=== PATIENT | female | born 1950 | race Caucasian/White ===

== ENCOUNTER 2018-05-17 12:00 | Inpatient (IN) | payer MEDICARE, OTHER ==
[~2018-05-17] VITALS: Ht 162.6 cm; Wt 88.5 kg
--- NOTE | 2018-07-24 13:45 | Pre-op HX & Phy Repo 2 SIG ---
DATE OF ADMISSION: 07/25/2018 SCHEDULED FOR ADMISSION: On July 25, 2018. HISTORY OF PRESENT ILLNESS: The patient is a 67-year-old female in overall stable health with a malfunctioning Kock pouch continent ileostomy. The patient had ulcerative colitis and in 1974 underwent surgery surgery involving proctocolectomy and Maira ileostomy. In 1977 she underwent creation of a Kock pouch continent ileostomy. She has done well with her Kock pouch over the years, but recently her stoma has prolapsed up to 4 cm above the skin. The stoma was also enlarged and she has occasional incontinence of stool and gas. The patient intubates 4-5 times a day and once at night, without difficulty. She is scheduled to undergo endoscopy of her pouch and preparation for surgery with laparotomy with revision of Kock pouch. PAST MEDICAL HISTORY: MEDICATIONS: Levothyroxine, lisinopril 20 mg daily for hypertension, Vyvanse 30 mg daily for attention deficit disorder, baclofen p.r.n. muscle cramps which she thinks is due to dehydration which she has at times, and she uses an inhaler p.r.n. ALLERGIES: Intravenous contrast causes anaphylaxis and Cipro intravenously caused an inflamed vein. OPERATIONS: In addition to the above, she has undergone left knee surgery x2, tonsillectomy, excision of breast fibroadenoma, and finger surgery. She is nulliparous. PHYSICAL EXAMINATION: She is 5 feet 4 inches, approximately 190 pounds. She is arriving from out of town and will be examined upon arrival and dictated separately. IMPRESSION: 1. Malfunctioning Kock pouch continent ileostomy with stoma prolapse and valve partial desussception with incontinence. 2. History of ulcerative colitis. 3. STATUS POST MULTIPLE ABDOMINAL OPERATIONS: 3.1. Proctocolectomy with Maira ileostomy in 1974. 3.2. Creation of Kock pouch continent ileostomy in 1977. PLAN: The patient will be admitted and undergo insertion of a dual-lumen PICC line, bowel prep, intravenous hydration during the bowel prep and overnight with pouch endoscopy and preparation for surgery. I have had a full discussion with the patient, which I will again have in person when she arrives from out of town regarding the nature of her problem, the nature of the surgery, indications, alternatives, options, and risks including bleeding, infection, injury to adjacent structures or organs, recurrent difficulties with the pouch structure or function needing additional procedures, potential need to remove her pouch and create a conventional Maira ileostomy. Bang Gracia M.D. DR: Jimbo JOB#: [id number] CC: KELLY
[2018-07-25 10:15] VITALS: BP 153/79
[2018-07-25] MEDS ORDERED: Lidocaine 1% Plain 30 ml INJ ONE (11:00)
[2018-07-25] MEDS ORDERED: Zolpidem 5mg tab ORAL PRN (11:00)
[2018-07-25] MEDS ORDERED: Heparin1,000 units/500ml Premix(Conc:2 units/ml) IV ONE (11:00)
[2018-07-25 11:09] LABS: BASOPHILS % (AUTO) 1.1 % (0.0-2.0); EOSINOPHILS % (AUTO) 2.7 % (0.0-3.0); HEMATOCRIT 38.4 % (37.0-47.0); HEMOGLOBIN 12.6 G/DL (12.0-16.0); LYMPHOCYTES % (AUTO) 38.1 % (20.0-45.0); MEAN CORPUSCULAR VOLUME 93 FL (80-99); MONOCYTES % (AUTO) 6.9 % (1.0-10.0); NEUTROPHILS % (AUTO) 51.2 % (45.0-75.0); PLATELET COUNT 332 K/UL (150-450); RED BLOOD COUNT 4.15 M/UL (4.20-5.40); RED CELL DISTRIBUTION WIDTH 11.8 % (11.6-14.8); WHITE BLOOD COUNT 7.9 K/UL (4.8-10.8)
[2018-07-25 11:20] LABS: INR 0.9 (0.9-1.1)
[2018-07-25 11:29] LABS: ANION GAP 9 mmol/L (5-15); BLOOD UREA NITROGEN 13 mg/dL (7-18); CALCIUM 9.3 MG/DL (8.5-10.1); CARBON DIOXIDE 25 MMOL/L (21-32); CHLORIDE 106 MMOL/L (98-107); CREATININE 1.2 MG/DL (0.55-1.30); POTASSIUM 4.1 MMOL/L (3.5-5.1); SODIUM 140 MMOL/L (136-145)
[2018-07-25 11:33] LABS: ALANINE AMINOTRANSFERASE 39 U/L (12-78); ALBUMIN 3.8 G/DL (3.4-5.0); ALBUMIN/GLOBULIN RATIO 1.1 (1.0-2.7); ALKALINE PHOSPHATASE 118 U/L (46-116); ASPARTATE AMINO TRANSFERASE 32 U/L (15-37); BILIRUBIN,TOTAL 0.7 MG/DL (0.2-1.0)
[2018-07-25] MEDS ORDERED: PROVENTIL HFA6.7 G1 IH (11:33)
[2018-07-25] MEDS ORDERED: LEVOTHYROXINE75 MCG ORAL (11:33)
[2018-07-25] MEDS ORDERED: LISINOPRIL20 MG ORAL (11:33)
[2018-07-25] MEDS ORDERED: [UNRECOGNIZED DRUG - OTHER] (11:33)
[2018-07-25] MEDS ORDERED: BACLOFEN10 MG ORAL (11:33)
[2018-07-25] MEDS ORDERED: Lidocaine 1% Plain 30 ml INJ PRN (11:58)
[2018-07-25] MEDS ORDERED: Heparin1,000 units/500ml Premix(Conc:2 units/ml) IV PRN (11:58)
[2018-07-25 12:00] VITALS: BP 140/80
[2018-07-25] MEDS: Neomycin Sulfate 500mg Tab ORAL SCH ×4 (12:12→21:05)
--- NOTE | 2018-07-25 12:22 | Pre-Procedure Note/Attestation ---
Pre-Procedure Note/Attestation Complete Prior to Procedure Planned Procedure: not applicable Procedure Narrative: Kock pouch endoscopy Indications for Procedure Pre-Operative Diagnosis: malfunctioning Kock Pouch Attestation I attest that I discussed the nature of the procedure; its benefits; risks and complications; and alternatives (and the risks and benefits of such alternatives ), prior to the procedure, with the patient (or the patient's legal claim service representative). I attest that, if there was a reasonable possibility of needing a blood transfusion, the patient (or the patient's legal claim service representative) was given the [facility] standardized written summary, pursuant to the Dominik Lazara Blood Safety Act ([place] Health and Safety Code # 1645, as amended). I attest that I re-evaluated the patient just prior to the surgery and that there has been no change in the patient's H&P, except as documented below: none Bang Gracia MD Jul 25, 2018 12:22
--- NOTE | 2018-07-25 12:38 | Anethesia Preoperative Eval ---
Anesthesia Pre-op PMH/ROS General Date of Evaluation: Jul 25, 2018 Anesthesiologist: Rashi ASA Score: ASA 2 Mallampati Score Class I : Soft palate, uvula, fauces, pillars visible Class II: Soft palate, uvula, fauces visible Class III: Soft palate, base of uvula visible Class IV: Only hard plate visible Mallampati Classification: Class II Surgeon: Basil Diagnosis: Malfunctioning rivera pouch Surgical Procedure: Laparotomy, revision of mukherjee pouch Anesthesia History: none Family History: no anesthesia problems Allergies: Coded Allergies: IODINATED CONTRAST- ORAL AND IV DYE (Verified Allergy, Severe, Anaphylaxis , 07/25/18) MEPERIDINE (Verified Allergy, Severe, Anaphylaxis, 07/25/18) CIPROFLOXACIN (Verified Allergy, Intermediate, Hives, 07/25/18) Medications: see eMAR Patient NPO?: Yes NPO Date: Jul 25, 2018 Past Medical History Cardiovascular: Reports: HTN; Denies: CAD, [place], valve dz, arrhythmia, other Pulmonary: Reports: asthma - mild, prn inhaler; Denies: COPD, VIJAY, other Gastrointestinal/Genitourinary: Reports: other - ulcerative colitis; Denies: GERD, CRI, ESRD Neurologic/Psychiatric: Denies: dementia, CVA, depression/anxiety, TIA, other Endocrine: Reports: hypothyroidism; Denies: DM, steroids, other HEENT: Denies: cataract (L), cataract (R), glaucoma, SLEETMUTE (L), SLEETMUTE (R), other Hematology/Immune: Denies: anemia, DVT, bleeding disorder, other Musculoskeletal/Integumentary: Denies: OA, RA, DJD, DDD, edema, other PSxH Narrative: mukherjee pouch, Left knee sx, T&A, finger sx Anesthesia Pre-op Phys. Exam Physician Exam Last Vital Signs Date Time Temp Pulse Resp B/P (MAP) Pulse Ox O2 Delivery O2 Flow Rate FiO2 07/25/18 10:15 97.9 70 18 153/79 (103) 100 Constitutional: NAD Cardiovascular: RRR Respiratory: CTA Airway Exam Mallampati Score: Class II MO: full ROM: full Anesthesia Pre-op A/P Labs Hematology Test 07/25/18 10:55 White Blood Count 7.9 K/UL (4.8-10.8) Red Blood Count 4.15 M/UL (4.20-5.40) L Hemoglobin 12.6 G/DL (12.0-16.0) Hematocrit 38.4 % (37.0-47.0) Mean Corpuscular Volume 93 FL (80-99) Mean Corpuscular Hemoglobin 30.4 PG (27.0-31.0) Mean Corpuscular Hemoglobin Concent 32.8 G/DL (32.0-36.0) Red Cell Distribution Width 11.8 % (11.6-14.8) Platelet Count 332 K/UL (150-450) Mean Platelet Volume 6.5 FL (6.5-10.1) Neutrophils (%) (Auto) 51.2 % (45.0-75.0) Lymphocytes (%) (Auto) 38.1 % (20.0-45.0) Monocytes (%) (Auto) 6.9 % (1.0-10.0) Eosinophils (%) (Auto) 2.7 % (0.0-3.0) Basophils (%) (Auto) 1.1 % (0.0-2.0) Coagulation Test 07/25/18 10:55 Prothrombin Time 9.9 SEC (9.30-11.50) Prothromb Time International Ratio 0.9 (0.9-1.1) Activated Partial Thromboplast Time 25 SEC (23-33) Chemistry Test 07/25/18 10:55 Sodium Level 140 MMOL/L (136-145) Potassium Level 4.1 MMOL/L (3.5-5.1) Chloride Level 106 MMOL/L (98-107) Carbon Dioxide Level 25 MMOL/L (21-32) Anion Gap 9 mmol/L (5-15) Blood Urea Nitrogen 13 mg/dL (7-18) Creatinine 1.2 MG/DL (0.55-1.30) Estimat Glomerular Filtration Rate 44.5 mL/min (>60) Glucose Level 105 MG/DL (74-106) Calcium Level 9.3 MG/DL (8.5-10.1) Total Bilirubin 0.7 MG/DL (0.2-1.0) Aspartate Amino Transf (AST/SGOT) 32 U/L (15-37) Alanine Aminotransferase (ALT/SGPT) 39 U/L (12-78) Alkaline Phosphatase 118 U/L (46-116) H Total Protein 7.2 G/DL (6.4-8.2) Albumin 3.8 G/DL (3.4-5.0) Globulin 3.4 g/dL Albumin/Globulin Ratio 1.1 (1.0-2.7) Studies Pre-op Studies: EKG - sr Risk Assessment & Plan Assessment: ASA II Plan: GA, patient states the morphine works best for her pain Status Change Before Surgery: No Pre-Antibiotics Drug: Shy Power MD Jul 25, 2018 12:38
[2018-07-25] MEDS ORDERED: D5 1/2NS w/KCl 20mEq 1,000 ML IV SCH ×2 (13:00→18:00)
[2018-07-25 13:17] LABS: APPEARANCE,URINE CLEAR; BILIRUBIN, URINE NEGATIVE (NEGATIVE); COLOR,URINE PALE YELLOW; GLUCOSE, URINE (UA) NEGATIVE (NEGATIVE); KETONES,URINE NEGATIVE (NEGATIVE); LEUKOCYTE ESTERASE ,URINE 1+ (NEGATIVE); NITRITE,URINE NEGATIVE (NEGATIVE); PH,URINE 5 (4.5-8.0); PROTEIN,URINE NEGATIVE (NEGATIVE); UROBILINOGEN,URINE NORMAL MG/DL (0.0-1.0)
--- NOTE | 2018-07-25 13:17 | Brief Operative Note ---
Immediate Post Operative Note Operative Note Pre-op Diagnosis: malfunctioning Kock Pouch Procedure: Kock pouch endoscopy Post-op Diagnosis: Prolapsed valve of Kock Pouch Post-op Diagnosis: same as pre-op Findings: consistent w/pre-op dx studies Surgeon: luis carlos Anesthesiologist: nestor Anesthesia: other - none Specimen: none Complications: none Condition: stable Fluids: none Estimated Blood Loss: none Drains: other - 28 Jerome to Kock Pouch Implant(s) used?: No Bang Gracia MD Jul 25, 2018 13:17
--- NOTE | 2018-07-25 13:56 | Diagnostic Imaging Report ---
Indication: Cough Technique: 2 views of the chest Comparison: None Findings: Lungs and pleural spaces are clear. The heart size is normal. The bones are unremarkable. There are degenerative changes of the thoracic spine Impression: Negative
--- NOTE | 2018-07-25 15:38 | General Progress Note ---
Progress Note Progress Note H&P dictated. Full discussion with patient re revision Kock pouch, possible new valve and stoma. Bang Gracia MD Jul 25, 2018 15:38
[2018-07-25 16:00] VITALS: BP 140/80
--- NOTE | 2018-07-25 16:32 | Diagnostic Imaging Report ---
Indications: Needs long-term IV access Technique: Ultrasound confirms patent compressible left basilic vein. Total sterile technique, including sterile probe cover and sterile gel, hat, mask, sterile gown, large sterile drape, and preparation with 2% chlorhexidine utilized. Local anesthesia with 1% lidocaine. Under real-time ultrasound guidance, puncture is a vein using 21-gauge needle, documented and archived, passage 0.018 guidewire under direct fluoroscopy, which was used to determine appropriate catheter length, exchange for 5 Spanish peel-away sheath. 5 Spanish Bard dual-lumen power PICC cut to 45 cm. It was inserted through the peel-away sheath. Peel-away sheath and guidewire removed. Catheter fixed to the skin. Both catheter ports aspirated and flushed. Patient tolerated procedure well, without immediate complication. Digital radiograph documents satisfactory catheter tip position, at the cavoatrial junction. Total fluoroscopy time 10.5 seconds. Total dose area product 1.25 mGy Total number of images: 1 Impression: Successful placement of left arm PICC under sonographic and fluoroscopic guidance, as described above.
[2018-07-25] MEDS: D5 1/2NS w/KCl 20mEq 1,000 ML IV SCH (18:01)
[2018-07-25 20:00] VITALS: BP 145/81
[2018-07-25] MEDS ORDERED: Dyna-Hex 2% Top Sol 2oz TOPIC SCH (20:00)
[2018-07-25] MEDS: Dyna-Hex 2% Top Sol 2oz TOPIC SCH (21:05)
[2018-07-25] MEDS ORDERED: Lisinopril 20mg tab ORAL SCH (21:30)
--- NOTE | 2018-07-25 22:00 | Pre-op HX & Phy Repo 2 SIG ---
DATE OF ADMISSION: 07/25/2018 HISTORY OF PRESENT ILLNESS: The patient has now arrived from out of town. Please see previously dictated history. PHYSICAL EXAMINATION: GENERAL: She is well developed and well nourished, somewhat obese, 5 feet 4 inches, 190 pounds with stable vital signs. HEENT: Within normal limits. LUNGS: Clear. HEART: Regular rhythm . BREASTS: Without masses. ABDOMEN: Somewhat obese and soft. There is a long curved midline scar. There is a right lower quadrant scar from prior conventional ileostomy. The stoma of her Kock pouch continent ileostomy is low in the right lower quadrant and well formed. With straining there was prolapse which ultimately extends 5 cm above the skin. There is no evidence of abdominal wall hernia. PELVIC: Negative per primary care physician. RECTAL: Status post proctectomy. EXTREMITIES: Without edema. pulses 2+ femoral to pedal bilaterally. NEUROLOGIC: Physiologic. IMPRESSION: 1. Malfunctioning Kock pouch continent ileostomy with prolapse of the valve with incontinence. 2. History of ulcerative colitis. 3. Hypertension. 4. Attention deficit disorder. 5. Hypothyroidism. 6. Status post multiple abdominal operations 6.1. Proctocolectomy with Maira ileostomy in 1974. 6.2. Creation of Kock pouch continent ileostomy in 1977. PLAN: The patient will undergo laparotomy and revision of her Kock pouch ideally to be able to reform and stabilize her existing valve. Alternatively, a new valve and stoma will be created preserving the existing pouch which is otherwise healthy. I had a full discussion with the patient regarding the nature of the surgery, options, and risks including both the general and specific risks of the Kock pouch revision and possible gastrostomy. All questions have been answered. She understands and agrees to proceed. Bang Gracia M.D. DR: Richi JOB#: [id number] CC: KELLY
--- NOTE | 2018-07-25 22:15 | Procedure Note ---
DATE OF PROCEDURE: 07/25/2018 ENDOSCOPY PROCEDURE REPORT ENDOSCOPIST: Bang Gracia M.D. ANESTHESIA: None. SEDATION: None. PRE-ENDOSCOPY DIAGNOSIS: Malfunctioning Kock pouch continent ileostomy. POST-ENDOSCOPY DIAGNOSIS: Malfunctioning Kock pouch continent ileostomy. ENDOSCOPY PERFORMED: Kock pouch endoscopy. FINDINGS: Prolapse of the nipple valve with a healthy pouch. DESCRIPTION OF PROCEDURE: The patient was positioned supine in the GI lab without any sedation or anesthesia given or required. Using a GIF-P140 endoscope, the stoma was entered and the distance to the tip of the nipple valve was 11 to 12 cm. The pouch was distensible and mucosa normal. Retroflex views revealed that one portion of the valve was very tilted and foreshortened. Withdrawal views confirmed the above findings. After the endoscope was removed, I was able to readily insert a 28-Czech Jerome catheter into the pouch to decompress it. It was taped in place to the skin with a dressing over the stoma and the catheter connected to a Jerome drainage bag for continuous gravity drainage. The patient will require surgical revision of her Kock pouch. She tolerated the endoscopy well. Bang Gracia M.D. DR: Richi JOB#: [id number] CC:
[2018-07-26] VITALS (19 sets, daily range): BP systolic 76–136; BP diastolic 45–66
[2018-07-26] MEDS: D5 1/2NS w/KCl 20mEq 1,000 ML IV SCH (03:54)
[2018-07-26] MEDS ORDERED: Heparin 5000 units/ml inj SUBQ SCH (05:30)
[2018-07-26] MEDS: Ampicillin/Sulbactam Sod 3 GM in NS 110 ML IVPB SCH ×3 (05:46)
[2018-07-26] MEDS ORDERED: NS Irrig 1000ml ONE (07:00)
[2018-07-26] MEDS ORDERED: LR 1000ml ONE (07:00)
[2018-07-26] MEDS ORDERED: Sterile Water Irrig 1000ml IRRIG ONE (07:00)
[2018-07-26] MEDS ORDERED: Bacitracin 50000 Units Vial ONE ×2 (07:02→07:33)
[2018-07-26] MEDS ORDERED: NeoSporin Gu Irrig 1ml Amp IRRIG ONE ×2 (07:02→07:33)
[2018-07-26] MEDS ORDERED: fentaNYL 100 mcg/2 mL IV ONE (07:03)
[2018-07-26] MEDS ORDERED: Midazolam 2mg/2ml Inj ONE (07:04)
[2018-07-26] MEDS ORDERED: Propofol 200mg/20ml IV ONE (07:06)
[2018-07-26] MEDS ORDERED: Lidocaine 1% MPF 10mg/ml 5ml ONE (07:06)
[2018-07-26] MEDS ORDERED: Succinylcholine 20mg/ml 10ml vial ONE (07:16)
[2018-07-26] MEDS ORDERED: Zemuron 50mg/5ml Inj IV ONE (07:16)
--- NOTE | 2018-07-26 07:19 | Pre-Procedure Note/Attestation ---
Pre-Procedure Note/Attestation Complete Prior to Procedure Planned Procedure: not applicable Procedure Narrative: revision Kock pouch, possible gastrostomy Indications for Procedure Pre-Operative Diagnosis: malfunctioning Kock Pouch Attestation I attest that I discussed the nature of the procedure; its benefits; risks and complications; and alternatives (and the risks and benefits of such alternatives ), prior to the procedure, with the patient (or the patient's legal agricultural sales representative). I attest that, if there was a reasonable possibility of needing a blood transfusion, the patient (or the patient's legal agricultural sales representative) was given the [facility] standardized written summary, pursuant to the Dominik [place] Blood Safety Act ([place] Health and Safety Code # 1645, as amended). I attest that I re-evaluated the patient just prior to the surgery and that there has been no change in the patient's H&P, except as documented below:none Bang Gracia MD Jul 26, 2018 07:19
[2018-07-26] MEDS ORDERED: LR 1000ml 1,000 ML IVLG SCH (08:28)
[2018-07-26] MEDS ORDERED: Acetaminophen (Non formulary) 100 ML IV ONE (08:30)
[2018-07-26] MEDS ORDERED: DiphenhydrAMINE 50mg/ml Inj IVP PRN ×2 (08:30→10:15)
[2018-07-26] MEDS ORDERED: Hydromorphone 0.5mg/0.5ml inj IVP PRN (08:30)
[2018-07-26] MEDS ORDERED: Morphine Sulfate 10mg/ml Inj ONE (08:40)
[2018-07-26] MEDS ORDERED: ePHEDrine 50mg/ml Inj ONE (08:53)
[2018-07-26] MEDS ORDERED: Sodium Chloride 10ml vial INJ ONE (08:53)
[2018-07-26] MEDS: VYVANSE 30 MG ORAL SCH (09:00)
[2018-07-26] MEDS ORDERED: Lisinopril 20mg tab ORAL SCH (09:00)
[2018-07-26] MEDS ORDERED: Ketorolac 30mg Inj ONE (09:34)
--- NOTE | 2018-07-26 09:58 | Brief Operative Note ---
Immediate Post Operative Note Operative Note Pre-op Diagnosis: malfunctioning Kock Pouch Procedure: Laparotomy with revision of Kock Pouch Post-op Diagnosis: Prolapsed valve of Kock Pouch Post-op Diagnosis: same as pre-op Findings: consistent w/pre-op dx studies Surgeon: luis carlos Certified Income Tax Preparer: kory Anesthesiologist: lauren Anesthesia: general Specimen: none Complications: none Condition: stable Fluids: see anesthesia record Estimated Blood Loss: minimal Drains: other - 28 Jerome to Kock pouch Implant(s) used?: Bang Massey MD Jul 26, 2018 09:58
[2018-07-26] MEDS ORDERED: LORazepam 1mg tab SL PRN (10:00)
--- NOTE | 2018-07-26 10:09 | Immediate Post-Op Evaluation ---
Immediate Post-Op Evalulation Immediate Post-Op Evalulation Procedure: Exploratorylaparotomy revision of continent pouch Date of Evaluation: Jul 26, 2018 Time of Evaluation: 10:07 IV Fluids: 800 Blood Products: none Estimated Blood Loss: <50 Urinary Output: 350 Blood Pressure Systolic: 92 Blood Pressure Diastolic: 56 Pulse Rate: 74 Respiratory Rate: 22 O2 Sat by Pulse Oximetry: 98 Temperature (Fahrenheit): 98.2 Pain Score (1-10): 1 Nausea: No Vomiting: No Complications none Patient Status: reacts, patent, extubated, none Hydration Status: adequate Doni Varela MD Jul 26, 2018 10:09
[2018-07-26] MEDS ORDERED: Naloxone 0.4mg/ml Inj IVP PRN (10:15)
[2018-07-26] MEDS ORDERED: Morphine Sulfate 4mg/ml Inj (IV USE ONLY) IV PRN (10:15)
[2018-07-26] MEDS ORDERED: Rate Change PCA 1 Each MISC PRN (10:15)
[2018-07-26] MEDS ORDERED: PCA Morphine 1mg/ml 30 ML IV PRN ×2 (10:15→13:42)
[2018-07-26] MEDS ORDERED: Morphine Sulfate 2mg/ml Inj(IV/IM USE ONLY) IVP PRN (10:15)
[2018-07-26] MEDS ORDERED: PCA Education Pamphlet MISC ONE (11:00)
[2018-07-26] MEDS ORDERED: NS 250 ML IVPB ONE (12:00)
[2018-07-26] MEDS: Ampicillin/Sulbactam Sod 3 GM in NS 110 ML IV SCH ×2 (12:06→17:38)
[2018-07-26] MEDS: D5 1/4NS w/KCl 20mEq 1,000 ML IV SCH ×2 (14:08→21:55)
--- NOTE | 2018-07-26 15:06 | General Progress Note ---
Progress Note Progress Note Was very sleepy with low systolic BP without tachycardia. Given IV fluid bolus, now awake and alert with stable VS Abdomen soft, dressing dry Kock pouch - small amount serosang fluid Imp. Stable Bang Gracia MD Jul 26, 2018 15:06
--- NOTE | 2018-07-26 16:30 | Operative Note - Dictated ---
DATE OF OPERATION: 07/26/2018 SURGEON: Bang Gracia M.D. CONSTRUCTION SAFETY CONSULTANT: Umang Wright M.D. ANESTHESIOLOGIST: Doni Varela M.D. TYPE OF ANESTHESIA: General endotracheal. PREOPERATIVE DIAGNOSES: 1. 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 2. History of ulcerative colitis. 3. Status post multiple abdominal operations. 3.1. Proctocolectomy with Maira ileostomy in 1974. 3.2. Creation of Kock pouch continent ileostomy in 1977. POSTOPERATIVE DIAGNOSES: 1. 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 2. History of ulcerative colitis. 3. Status post multiple abdominal operations. 3.1. Proctocolectomy with Maira ileostomy in 1974. 3.2. Creation of Kock pouch continent ileostomy in 1977. OPERATION PERFORMED: Laparotomy with revision of Kock pouch. PROCEDURE: The patient was taken to the operating room and under general anesthesia with sequential compression device stockings and Jerome catheter in place and having received preoperative intravenous antibiotics and subcutaneous heparin, the patient was prepped and draped in usual fashion. The stoma low in the right lower quadrant was initially covered with a Tegaderm. Previous midline incision was reopened from just below the umbilicus to the pubis. There were no adhesions in the abdominal cavity. The pouch was readily elevated out of the pelvis. The uterus, tubes, and ovaries were atrophic and consistent with age. The upper abdomen was negative to palpation, but could not be visualized through this incision in view of her large body habitus. A 28-Welsh Jerome catheter was placed into the pouch through the stoma in the right lower quadrant and the afferent bowel manually occluded. The pouch was distended with 500 mL of saline. The catheter was removed and there was no incontinence. The catheter was reintroduced and the pouch decompressed. A pouch enterotomy was created avoiding the afferent bowel connection to the pouch. The nipple valve was grasped and was able to be reformed to 5.0 cm. A row of jt using the PI-55 stapling device with 4.8 mm jt was placed 90 degrees away from the mesentery. Then through a separate pouch enterotomy, the stapling device was introduced with the lower blade through the enterotomy and into the valve to staple the valve to the anterior pouch wall. In addition, I used three sutures of 2-0 Prolene horizontal mattress full-thickness of the pouch, then the valve near the tip and back to the pouch to help prevent recurrent prolapse. The ileostomy catheter went readily in and out of the stoma into the pouch. The small enterotomy was closed with continuous 2-0 chromic full-thickness locking suture followed by imbricating 3-0 silk. The main pouch enterotomy was closed with continuous 2-0 chromic locking suture full-thickness followed by imbricating 3-0 silk. Again, the 28-Welsh Jerome could readily be placed through the stoma into the pouch. Now the afferent bowel was manually occluded and the pouch again distended with 450 mL of saline. There was no extravasation of any kind and when the catheter was removed, there was no incontinence. The catheter was reintroduced and the pouch decompressed. The pouch was placed down into the pelvis with the bowel loops following anatomically. I did not feel catheter gastrostomy was indicated. The incision was closed in one layer with continuous looped 0 PDS and antibiotic irrigation used for the subcutaneous tissues. The abdominal wall had been protected with antibiotic soaked laps during the procedure. The skin was closed with jt. Dry sterile dressings were applied. Final sponge and needle counts were correct. The 28-Welsh Jerome had been appropriately positioned in the pouch, marked at the level of the stoma with 3-0 silk and sutured to the skin with two sutures of 2-0 silk. It was flushed and connected to a gravity drainage bag. The patient tolerated the procedure well and left the operating room in good condition. Bang Gracia M.D. DR: Richi JOB#: [id number] CC: KELLY
[2018-07-26] MEDS: PCA shift volume MISC SCH (19:30)
[2018-07-26] MEDS: Dyna-Hex 2% Top Sol 2oz TOPIC SCH (20:08)
[2018-07-26] MEDS: Guaifenesin/DM 10ml syrup ORAL PRN (20:33)
[2018-07-27] VITALS: BP 117/64
[2018-07-27] MEDS: Ampicillin/Sulbactam Sod 3 GM in NS 110 ML IV SCH ×4 (00:01→17:54)
[2018-07-27] MEDS: Guaifenesin/DM 10ml syrup ORAL PRN ×2 (02:49→11:43)
[2018-07-27 04:00] VITALS: BP 121/61
[2018-07-27] MEDS: D5 1/4NS w/KCl 20mEq 1,000 ML IV SCH ×3 (05:33→21:32)
[2018-07-27 06:24] LABS: BASOPHILS % (AUTO) 0.3 % (0.0-2.0); EOSINOPHILS % (AUTO) 0.7 % (0.0-3.0); HEMATOCRIT 33.2 % (37.0-47.0); HEMOGLOBIN 11.1 G/DL (12.0-16.0); MEAN CORPUSCULAR VOLUME 93 FL (80-99); MONOCYTES % (AUTO) 8.2 % (1.0-10.0); NEUTROPHILS % (AUTO) 68.8 % (45.0-75.0); PLATELET COUNT 199 K/UL (150-450); RED BLOOD COUNT 3.58 M/UL (4.20-5.40); RED CELL DISTRIBUTION WIDTH 11.9 % (11.6-14.8); WHITE BLOOD COUNT 9.4 K/UL (4.8-10.8)
[2018-07-27 06:42] LABS: ANION GAP 8 mmol/L (5-15); BLOOD UREA NITROGEN 9 mg/dL (7-18); CALCIUM 8.1 MG/DL (8.5-10.1); CARBON DIOXIDE 24 MMOL/L (21-32); CHLORIDE 104 MMOL/L (98-107); CREATININE 1.3 MG/DL (0.55-1.30); POTASSIUM 4.6 MMOL/L (3.5-5.1); SODIUM 136 MMOL/L (136-145)
[2018-07-27] MEDS: PCA shift volume MISC SCH ×2 (07:00→19:00)
[2018-07-27 08:00] VITALS: BP 126/68
--- NOTE | 2018-07-27 08:09 | 48 Hour Post Anesthesia Eval ---
Post Anesthesia Evaluation Procedure: Exploratory laparotomy revision of continent pouch Date of Evaluation: Jul 27, 2018 Time of Evaluation: 08:07 Blood Pressure Systolic: 124 0: 76 Pulse Rate: 68 Respiratory Rate: 20 Temperature (Fahrenheit): 97.6 O2 Sat by Pulse Oximetry: 98 Airway: patent Nausea: No Vomiting: No Pain Intensity: 3 Hydration Status: adequate Cardiopulmonary Status: stable Mental Status/LOC: patient returned to baseline Follow-up Care/Observations: n/a Post-Anesthesia Complications: none Follow-up care needed: N/A Doni Varela MD Jul 27, 2018 08:09
--- NOTE | 2018-07-27 08:26 | General Progress Note ---
Progress Note Progress Note AVSS Had low systolic post-op now improved. comfortable with Morphine FOREST FIRE LOOKOUT no basal infusion. Had cough last night Chest clear decreased expansion cor reg rhythm Abdomen soft, mild distention, incision clean. Thick output via Kock pouch ileo catheter cleared with additional flush/aspiration Urine: 500cc/12 hours Kock pouch ileo 20 serosang and now enteric WBC 9400 Hgb 11.1 BUN 9 Cr 1.3 Imp. Ileus Atelectasis Plan; NPO x meds and ice chips ambulate with assistance BID f/u labs with iron panel, B12 and folate levels Bang Gracia MD Jul 27, 2018 08:26
[2018-07-27] MEDS: VYVANSE 30 MG ORAL SCH (08:40)
[2018-07-27] MEDS ORDERED: Morphine Sulfate 2mg/ml Inj(IV/IM USE ONLY) IVP PRN (10:00)
[2018-07-27] MEDS ORDERED: Naloxone 0.4mg/ml Inj IVP PRN (10:00)
[2018-07-27] MEDS ORDERED: Rate Change PCA 1 Each MISC PRN (10:00)
[2018-07-27] MEDS ORDERED: Morphine Sulfate 4mg/ml Inj (IV USE ONLY) IV PRN (10:00)
[2018-07-27] MEDS ORDERED: DiphenhydrAMINE 50mg/ml Inj IVP PRN (10:00)
[2018-07-27] MEDS: PCA Morphine 1mg/ml 30 ML IV PRN (11:11)
[2018-07-27 12:00] VITALS: BP 135/73
[2018-07-27 16:00] VITALS: BP 140/72
[2018-07-27] MEDS ORDERED: NS 275ml ONE (16:58)
[2018-07-27] MEDS ORDERED: Tubing IV Secondary IV ONE (16:58)
[2018-07-27] MEDS ORDERED: NS Irrig 1000ml ONE (16:58)
[2018-07-27 20:00] VITALS: BP 132/78
[2018-07-27] MEDS: Dyna-Hex 2% Top Sol 2oz TOPIC SCH (20:00)
[2018-07-27] MEDS: LORazepam 1mg tab SL PRN (22:40)
[2018-07-28] VITALS: BP 141/83
[2018-07-28] MEDS: Ampicillin/Sulbactam Sod 3 GM in NS 110 ML IV SCH ×5 (00:22→23:20)
[2018-07-28 04:00] VITALS: BP 134/82
[2018-07-28] MEDS: D5 1/4NS w/KCl 20mEq 1,000 ML IV SCH (05:50)
[2018-07-28 06:51] LABS: BASOPHILS % (AUTO) 0.7 % (0.0-2.0); EOSINOPHILS % (AUTO) 1.4 % (0.0-3.0); LYMPHOCYTES % (AUTO) 27.1 % (20.0-45.0); MEAN CORPUSCULAR VOLUME 91 FL (80-99); MONOCYTES % (AUTO) 8.5 % (1.0-10.0); NEUTROPHILS % (AUTO) 62.4 % (45.0-75.0); PLATELET COUNT 204 K/UL (150-450); RED BLOOD COUNT 3.51 M/UL (4.20-5.40); RED CELL DISTRIBUTION WIDTH 11.4 % (11.6-14.8); WHITE BLOOD COUNT 9.6 K/UL (4.8-10.8)
[2018-07-28 07:14] LABS: ANION GAP 6 mmol/L (5-15); BLOOD UREA NITROGEN 6 mg/dL (7-18); CALCIUM 8.6 MG/DL (8.5-10.1); CARBON DIOXIDE 25 MMOL/L (21-32); CHLORIDE 103 MMOL/L (98-107); CREATININE 1.2 MG/DL (0.55-1.30); POTASSIUM 4.3 MMOL/L (3.5-5.1); SODIUM 134 MMOL/L (136-145)
[2018-07-28] MEDS: PCA shift volume MISC SCH ×2 (07:24→19:17)
[2018-07-28 08:00] VITALS: BP 139/67
[2018-07-28 08:25] LABS: IRON 19 ug/dL (50-175)
[2018-07-28] MEDS: VYVANSE 30 MG ORAL SCH (08:35)
[2018-07-28 12:00] VITALS: BP 140/78
--- NOTE | 2018-07-28 13:03 | General Progress Note ---
Progress Note Progress Note Surgery: covering for Dr. Basil ECHEVERRIASS comfortable with Morphine FLOOR RUNNER no basal infusion. pain controlled. no n/v/ f/c. Abdomen soft, mild distention, incision clean. good output Urine: 1200cc/12 hours Kock pouch ileo 140 serosang and enteric Na low. Imp. Ileus Atelectasis Plan; NPO x meds and ice chips ambulate with assistance BID AM labs change to D51/2NS Umang Guadarrama Jul 28, 2018 13:03
[2018-07-28] MEDS: D5 1/2NS w/KCl 20mEq 1,000 ML IV SCH ×2 (14:14→23:19)
[2018-07-28 16:00] VITALS: BP 156/76
[2018-07-28] MEDS: Abreva 10% cream 2gm TP SCH ×2 (17:30→18:41)
[2018-07-28 20:00] VITALS: BP 150/81
[2018-07-28] MEDS: Dyna-Hex 2% Top Sol 2oz TOPIC SCH (20:00)
[2018-07-28] MEDS: LORazepam 1mg tab SL PRN (23:18)
[2018-07-29] VITALS (7 sets, daily range): BP systolic 139–159; BP diastolic 73–83
[2018-07-29] MEDS: Ampicillin/Sulbactam Sod 3 GM in NS 110 ML IV SCH ×4 (05:13→23:02)
[2018-07-29] MEDS: D5 1/2NS w/KCl 20mEq 1,000 ML IV SCH ×5 (05:17→23:01)
[2018-07-29] MEDS: PCA Morphine 1mg/ml 30 ML IV PRN (05:46)
[2018-07-29] MEDS: Abreva 10% cream 2gm TP SCH ×5 (06:03→19:00)
[2018-07-29 06:56] LABS: ALANINE AMINOTRANSFERASE 26 U/L (12-78); ALBUMIN 2.4 G/DL (3.4-5.0); ALBUMIN/GLOBULIN RATIO 0.8 (1.0-2.7); ALKALINE PHOSPHATASE 82 U/L (46-116); ANION GAP 4 mmol/L (5-15); ASPARTATE AMINO TRANSFERASE 27 U/L (15-37); BILIRUBIN,TOTAL 0.4 MG/DL (0.2-1.0); BLOOD UREA NITROGEN 6 mg/dL (7-18); CALCIUM 8.4 MG/DL (8.5-10.1); CARBON DIOXIDE 28 MMOL/L (21-32); CHLORIDE 104 MMOL/L (98-107); CREATININE 1.2 MG/DL (0.55-1.30); SODIUM 135 MMOL/L (136-145)
[2018-07-29] MEDS: PCA shift volume MISC SCH ×2 (06:58→19:21)
[2018-07-29 06:59] LABS: BASOPHILS % (AUTO) 0.7 % (0.0-2.0); EOSINOPHILS % (AUTO) 2.1 % (0.0-3.0); HEMATOCRIT 30.6 % (37.0-47.0); HEMOGLOBIN 10.6 G/DL (12.0-16.0); LYMPHOCYTES % (AUTO) 24.8 % (20.0-45.0); MEAN CORPUSCULAR VOLUME 89 FL (80-99); MONOCYTES % (AUTO) 7.4 % (1.0-10.0); PLATELET COUNT 193 K/UL (150-450); RED BLOOD COUNT 3.43 M/UL (4.20-5.40); RED CELL DISTRIBUTION WIDTH 11.2 % (11.6-14.8); WHITE BLOOD COUNT 8.3 K/UL (4.8-10.8)
[2018-07-29] MEDS: VYVANSE 30 MG ORAL SCH ×2 (09:00→11:39)
[2018-07-29] MEDS ORDERED: Naloxone 0.4mg/ml Inj IVP PRN (09:20)
[2018-07-29] MEDS ORDERED: Rate Change PCA 1 Each MISC PRN (09:30)
[2018-07-29] MEDS ORDERED: PCA Morphine 1mg/ml 30 ML IV PRN (10:00)
[2018-07-29] MEDS ORDERED: DiphenhydrAMINE 50mg/ml Inj IVP PRN (10:00)
[2018-07-29] MEDS ORDERED: Morphine Sulfate 4mg/ml Inj (IV USE ONLY) IV PRN (10:00)
[2018-07-29] MEDS ORDERED: Morphine Sulfate 2mg/ml Inj(IV/IM USE ONLY) IVP PRN (10:00)
[2018-07-29] MEDS ORDERED: Lisinopril 20mg tab ORAL SCH (11:30)
--- NOTE | 2018-07-29 13:30 | General Progress Note ---
Progress Note Progress Note Surgery: covering for Dr. Basil AKINS comfortable with Morphine TNT LINE SUPERVISOR no basal infusion. pain controlled. no n/v/ f/c. Abdomen soft, no distention, incision clean. good output Urine: 2300cc/24 hours Kock pouch ileo 160 enteric Na low. Imp. Ileus Atelectasis Plan; NPO x meds and ice chips ambulate with assistance BID AM labs change to D51/2NS c K Hold lisinopril (baseline renal function) Umang Wright Jul 29, 2018 13:30
[2018-07-29] MEDS ORDERED: NS 275ml ONE (17:15)
[2018-07-29] MEDS: Dyna-Hex 2% Top Sol 2oz TOPIC SCH (20:08)
[2018-07-29] MEDS: LORazepam 1mg tab SL PRN (20:22)
[2018-07-30] VITALS (7 sets, daily range): BP systolic 131–151; BP diastolic 66–86
[2018-07-30] MEDS: LORazepam 1mg tab SL PRN ×2 (00:27→06:17)
[2018-07-30] MEDS: D5 1/2NS w/KCl 20mEq 1,000 ML IV SCH ×3 (06:07→20:53)
[2018-07-30] MEDS: Ampicillin/Sulbactam Sod 3 GM in NS 110 ML IV SCH ×3 (06:11→17:43)
[2018-07-30 06:19] LABS: BASOPHILS % (AUTO) 0.9 % (0.0-2.0); EOSINOPHILS % (AUTO) 2.4 % (0.0-3.0); HEMATOCRIT 31.1 % (37.0-47.0); HEMOGLOBIN 10.3 G/DL (12.0-16.0); LYMPHOCYTES % (AUTO) 20.7 % (20.0-45.0); MEAN CORPUSCULAR VOLUME 91 FL (80-99); MONOCYTES % (AUTO) 7.8 % (1.0-10.0); NEUTROPHILS % (AUTO) 68.2 % (45.0-75.0); PLATELET COUNT 193 K/UL (150-450); WHITE BLOOD COUNT 6.1 K/UL (4.8-10.8)
[2018-07-30 06:57] LABS: ALANINE AMINOTRANSFERASE 28 U/L (12-78); ALBUMIN 2.5 G/DL (3.4-5.0); ALBUMIN/GLOBULIN RATIO 0.7 (1.0-2.7); ALKALINE PHOSPHATASE 100 U/L (46-116); ANION GAP 6 mmol/L (5-15); ASPARTATE AMINO TRANSFERASE 29 U/L (15-37); BILIRUBIN,TOTAL 0.5 MG/DL (0.2-1.0); BLOOD UREA NITROGEN 7 mg/dL (7-18); CALCIUM 8.4 MG/DL (8.5-10.1); CARBON DIOXIDE 26 MMOL/L (21-32); CHLORIDE 101 MMOL/L (98-107); CREATININE 1.2 MG/DL (0.55-1.30); SODIUM 133 MMOL/L (136-145)
[2018-07-30] MEDS: PCA shift volume MISC SCH ×2 (07:00→20:06)
[2018-07-30] MEDS: Abreva 10% cream 2gm TP SCH ×4 (07:00→16:00)
[2018-07-30] MEDS: VYVANSE 30 MG ORAL SCH ×2 (09:51→09:53)
--- NOTE | 2018-07-30 14:48 | General Progress Note ---
Progress Note Progress Note Surgery: covering for Dr. Basil AKINS had pain yesterday. today states better but has not ambulated or used IS yet. low grade fevers. no n/v/f/c. Abdomen soft, mild distention, incision clean. good output Urine: okay Kock pouch ileo minimal enteric Na low. Imp. Ileus Atelectasis Plan; NPO x meds and ice chips ambulate with assistance BID AM labs KUB and CXR Encourage Incentive spirometry Umang Wright Jul 30, 2018 14:48
--- NOTE | 2018-07-30 16:04 | Diagnostic Imaging Report ---
Indication: Abdominal pain Comparison: None Single view of the abdomen obtained Findings: Surgical skin jt noted in the midabdomen lower abdomen. Bowel gas pattern is nonspecific. Bones are unremarkable. IMPRESSION: Recent abdominal surgery. Nonspecific bowel gas pattern
--- NOTE | 2018-07-30 16:05 | Diagnostic Imaging Report ---
Indication: Dyspnea Comparison: 07/25/2018 A single view chest radiograph was obtained. Findings: PICC line tip is in the SVC in good position. Heart size is normal. Mild basal atelectasis demonstrated. IMPRESSION: Mild basal atelectasis PICC line in good position
[2018-07-30] MEDS ORDERED: ABREVA TOPIC SCH (19:00)
[2018-07-30] MEDS: Dyna-Hex 2% Top Sol 2oz TOPIC SCH (20:51)
[2018-07-30] MEDS: ABREVA TOPIC SCH (20:52)
[2018-07-31] VITALS: BP 150/78
[2018-07-31] MEDS: Ampicillin/Sulbactam Sod 3 GM in NS 110 ML IV SCH ×2 (00:08→05:56)
[2018-07-31 04:00] VITALS: BP 126/69
[2018-07-31] MEDS: LORazepam 1mg tab SL PRN ×3 (04:34→21:44)
[2018-07-31 05:08] LABS: ANION GAP 8 mmol/L (5-15); BLOOD UREA NITROGEN 7 mg/dL (7-18); CALCIUM 8.2 MG/DL (8.5-10.1); CARBON DIOXIDE 25 MMOL/L (21-32); CHLORIDE 102 MMOL/L (98-107); CREATININE 1.2 MG/DL (0.55-1.30); POTASSIUM 3.8 MMOL/L (3.5-5.1); SODIUM 135 MMOL/L (136-145)
[2018-07-31 05:22] LABS: BASOPHILS % (AUTO) 0.7 % (0.0-2.0); EOSINOPHILS % (AUTO) 2.2 % (0.0-3.0); HEMATOCRIT 30.3 % (37.0-47.0); HEMOGLOBIN 10.2 G/DL (12.0-16.0); LYMPHOCYTES % (AUTO) 31.5 % (20.0-45.0); MEAN CORPUSCULAR VOLUME 91 FL (80-99); MONOCYTES % (AUTO) 9.9 % (1.0-10.0); NEUTROPHILS % (AUTO) 55.7 % (45.0-75.0); PLATELET COUNT 204 K/UL (150-450); RED BLOOD COUNT 3.32 M/UL (4.20-5.40); RED CELL DISTRIBUTION WIDTH 11.2 % (11.6-14.8); WHITE BLOOD COUNT 5.7 K/UL (4.8-10.8)
[2018-07-31] MEDS: D5 1/2NS w/KCl 20mEq 1,000 ML IV SCH ×4 (05:56→21:27)
[2018-07-31] MEDS: ABREVA TOPIC SCH ×5 (05:57→19:00)
[2018-07-31] MEDS: PCA shift volume MISC SCH ×2 (07:23→19:32)
[2018-07-31 08:00] VITALS: BP 120/72
[2018-07-31] MEDS: VYVANSE 30 MG ORAL SCH (08:50)
[2018-07-31] MEDS ORDERED: Naloxone 0.4mg/ml Inj IVP PRN (11:45)
[2018-07-31] MEDS ORDERED: PCA Morphine 1mg/ml 30 ML IV PRN (11:45)
[2018-07-31] MEDS ORDERED: Morphine Sulfate 4mg/ml Inj (IV USE ONLY) IV PRN (11:45)
[2018-07-31] MEDS ORDERED: DiphenhydrAMINE 50mg/ml Inj IVP PRN (11:45)
[2018-07-31] MEDS ORDERED: Rate Change PCA 1 Each MISC PRN (11:45)
[2018-07-31] MEDS ORDERED: Morphine Sulfate 2mg/ml Inj(IV/IM USE ONLY) IVP PRN (11:45)
--- NOTE | 2018-07-31 11:45 | General Progress Note ---
Progress Note Progress Note T 100.7 Had fever yesterday as well. VSS. Only out of bed once yesterday Abdomen soft, incision clean Urine 2400 Kock pouch ileo 790 WBC 5700 Hgb 10.2 Platelets 204,000 BUN 7 Cr 1.2 CXR and KUB - okay with mild bibasilar atelectasis Imp. Ileus resolved Fever ? etiology Plan: U/A and urine C&S remove urinary Jerome d/c antibiotics ambulate 3x every 24 hours Clear liquid diet Bang Gracia MD Jul 31, 2018 11:45
[2018-07-31 12:00] VITALS: BP 158/81
[2018-07-31 14:14] LABS: APPEARANCE,URINE CLEAR; BILIRUBIN, URINE NEGATIVE (NEGATIVE); COLOR,URINE PALE YELLOW; GLUCOSE, URINE (UA) NEGATIVE (NEGATIVE); KETONES,URINE NEGATIVE (NEGATIVE); LEUKOCYTE ESTERASE ,URINE 1+ (NEGATIVE); NITRITE,URINE NEGATIVE (NEGATIVE); PH,URINE 7 (4.5-8.0); PROTEIN,URINE NEGATIVE (NEGATIVE); UROBILINOGEN,URINE NORMAL MG/DL (0.0-1.0)
[2018-07-31 16:00] VITALS: BP 143/89
[2018-07-31 20:00] VITALS: BP 160/79
[2018-07-31] MEDS: Dyna-Hex 2% Top Sol 2oz TOPIC SCH (21:27)
[2018-07-31] MEDS ORDERED: NS Irrig 1000ml ONE (22:36)
[2018-07-31] MEDS ORDERED: Tubing IV Secondary IV ONE (22:36)
[2018-08-01] VITALS: BP 165/91
[2018-08-01 04:00] VITALS: BP 154/83
[2018-08-01 05:12] LABS: ALANINE AMINOTRANSFERASE 33 U/L (12-78); ALBUMIN 2.7 G/DL (3.4-5.0); ALBUMIN/GLOBULIN RATIO 0.8 (1.0-2.7); ALKALINE PHOSPHATASE 109 U/L (46-116); ANION GAP 7 mmol/L (5-15); ASPARTATE AMINO TRANSFERASE 31 U/L (15-37); BILIRUBIN,TOTAL 0.4 MG/DL (0.2-1.0); BLOOD UREA NITROGEN 6 mg/dL (7-18); CALCIUM 8.7 MG/DL (8.5-10.1); CARBON DIOXIDE 24 MMOL/L (21-32); CHLORIDE 103 MMOL/L (98-107); CREATININE 1.2 MG/DL (0.55-1.30); SODIUM 134 MMOL/L (136-145)
[2018-08-01 05:38] LABS: BASOPHILS % (AUTO) 0.9 % (0.0-2.0); EOSINOPHILS % (AUTO) 2.3 % (0.0-3.0); HEMOGLOBIN 11.5 G/DL (12.0-16.0); LYMPHOCYTES % (AUTO) 30.9 % (20.0-45.0); MEAN CORPUSCULAR VOLUME 90 FL (80-99); MONOCYTES % (AUTO) 9.1 % (1.0-10.0); NEUTROPHILS % (AUTO) 56.8 % (45.0-75.0); PLATELET COUNT 220 K/UL (150-450); RED BLOOD COUNT 3.78 M/UL (4.20-5.40); RED CELL DISTRIBUTION WIDTH 11.1 % (11.6-14.8); WHITE BLOOD COUNT 6.6 K/UL (4.8-10.8)
[2018-08-01] MEDS: ABREVA TOPIC SCH ×5 (06:02→19:00)
[2018-08-01] MEDS: D5 1/2NS w/KCl 20mEq 1,000 ML IV SCH (06:02)
[2018-08-01] MEDS: PCA shift volume MISC SCH ×2 (07:17→19:20)
[2018-08-01 08:00] VITALS: BP 145/95
[2018-08-01] MEDS: VYVANSE 30 MG ORAL SCH (08:41)
[2018-08-01 12:00] VITALS: BP 137/82
[2018-08-01] MEDS ORDERED: LORazepam 1mg tab SL PRN (12:00)
[2018-08-01] MEDS ORDERED: Morphine Sulfate 2mg/ml Inj(IV/IM USE ONLY) IVP PRN (12:00)
[2018-08-01] MEDS ORDERED: Rate Change PCA 1 Each MISC PRN (12:00)
[2018-08-01] MEDS ORDERED: Naloxone 0.4mg/ml Inj IVP PRN (12:00)
[2018-08-01] MEDS ORDERED: PCA Morphine 1mg/ml 30 ML IV PRN (12:00)
[2018-08-01] MEDS ORDERED: DiphenhydrAMINE 50mg/ml Inj IVP PRN (12:00)
[2018-08-01] MEDS ORDERED: Morphine Sulfate 4mg/ml Inj (IV USE ONLY) IV PRN (12:00)
[2018-08-01] MEDS ORDERED: D5 1/2NS w/KCl 20mEq 1,000 ML IV SCH (12:41)
--- NOTE | 2018-08-01 12:51 | General Progress Note ---
Progress Note Progress Note Afebrile x 24 hours. Feels better. 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 Resolving ileus Severe iron deficiency Plan: Continue clear liquid diet today, decrease IV fluids Maintain continuous drainage of Kock pouch Venofer 200mg IV daily Bang Gracia MD Aug 01, 2018 12:51
[2018-08-01] MEDS: Iron Sucrose 200 MG in NS 110 ML IV SCH (14:01)
[2018-08-01 16:03] VITALS: BP 140/84
[2018-08-01] MEDS ORDERED: NS 500ML ONE (16:36)
[2018-08-01] MEDS ORDERED: Tubing IV Secondary IV ONE (16:36)
[2018-08-01] MEDS ORDERED: NS Irrig 1000ml ONE (16:36)
[2018-08-01 20:00] VITALS: BP 163/87
[2018-08-01] MEDS: Dyna-Hex 2% Top Sol 2oz TOPIC SCH (20:13)
[2018-08-02] VITALS: BP 157/80
[2018-08-02 04:00] VITALS: BP 145/76
[2018-08-02] MEDS: ABREVA TOPIC SCH ×5 (07:00→19:00)
[2018-08-02] MEDS: PCA shift volume MISC SCH (07:30)
[2018-08-02 07:56] VITALS: BP 138/69
--- NOTE | 2018-08-02 08:20 | General Progress Note ---
Progress Note Progress Note AVSS Tolerating clear liquid diet well Abdomen soft, non-distended, healing nicely Urine 2950 Kock pouch ileo 590 Imp. Improved Plan: BCIR diet d/c IV fluids and tile sorter f/u labs resume lisinopril 20mg po daily Bang Gracia MD Aug 02, 2018 08:20
[2018-08-02] MEDS ORDERED: Norco 5mg/325mg tab ORAL PRN (08:28)
[2018-08-02] MEDS: Lisinopril 20mg tab ORAL SCH (08:53)
[2018-08-02] MEDS: VYVANSE 30 MG ORAL SCH (08:53)
[2018-08-02] MEDS: Iron Sucrose 200 MG in NS 110 ML IV SCH (09:04)
[2018-08-02 12:01] VITALS: BP 143/77
[2018-08-02 16:00] VITALS: BP 154/82
[2018-08-02 20:00] VITALS: BP 158/79
[2018-08-02] MEDS: Dyna-Hex 2% Top Sol 2oz TOPIC SCH (20:24)
[2018-08-03] VITALS: BP 155/82
[2018-08-03 04:00] VITALS: BP 152/78
[2018-08-03] MEDS: Guaifenesin/DM 10ml syrup ORAL PRN ×2 (05:53→20:18)
[2018-08-03 06:35] LABS: BASOPHILS % (AUTO) 1.3 % (0.0-2.0); EOSINOPHILS % (AUTO) 3.5 % (0.0-3.0); HEMOGLOBIN 10.4 G/DL (12.0-16.0); LYMPHOCYTES % (AUTO) 48.8 % (20.0-45.0); MEAN CORPUSCULAR VOLUME 91 FL (80-99); MONOCYTES % (AUTO) 8.3 % (1.0-10.0); NEUTROPHILS % (AUTO) 38.1 % (45.0-75.0); PLATELET COUNT 237 K/UL (150-450); RED BLOOD COUNT 3.41 M/UL (4.20-5.40); RED CELL DISTRIBUTION WIDTH 11.3 % (11.6-14.8); WHITE BLOOD COUNT 7.3 K/UL (4.8-10.8)
[2018-08-03 06:59] LABS: ALANINE AMINOTRANSFERASE 31 U/L (12-78); ALBUMIN 2.7 G/DL (3.4-5.0); ALBUMIN/GLOBULIN RATIO 0.8 (1.0-2.7); ALKALINE PHOSPHATASE 105 U/L (46-116); ANION GAP 8 mmol/L (5-15); ASPARTATE AMINO TRANSFERASE 20 U/L (15-37); BILIRUBIN,TOTAL 0.3 MG/DL (0.2-1.0); BLOOD UREA NITROGEN 9 mg/dL (7-18); CALCIUM 8.7 MG/DL (8.5-10.1); CARBON DIOXIDE 25 MMOL/L (21-32); CHLORIDE 106 MMOL/L (98-107); CREATININE 1.1 MG/DL (0.55-1.30); POTASSIUM 3.6 MMOL/L (3.5-5.1); SODIUM 138 MMOL/L (136-145)
[2018-08-03] MEDS: ABREVA TOPIC SCH ×5 (07:15→19:00)
[2018-08-03 08:00] VITALS: BP 149/82
[2018-08-03] MEDS: Lisinopril 20mg tab ORAL SCH (08:42)
[2018-08-03] MEDS: VYVANSE 30 MG ORAL SCH (08:42)
[2018-08-03] MEDS: Iron Sucrose 200 MG in NS 110 ML IV SCH (09:23)
[2018-08-03 12:00] VITALS: BP 155/82
--- NOTE | 2018-08-03 14:52 | General Progress Note ---
Progress Note Progress Note AVSS Feeling well today and ambulating freely Abdomen soft, healing nicely Urine 2800 Kock pouch ileo 940 labs all stable BUN9 Cr 1.1 Imp. Improved Plan: BCIR low residue diet continue Venofer to 1000mg total given Begin RN supervised Kock Pouch self-intubations in AM if stable overnight Bang Gracia MD Aug 03, 2018 14:52
[2018-08-03] MEDS: Ascorbic Acid 500mg tab ORAL PRN (18:19)
[2018-08-03 20:00] VITALS: BP 141/77
[2018-08-03] MEDS: Dyna-Hex 2% Top Sol 2oz TOPIC SCH (20:17)
[2018-08-04] VITALS: BP 155/83
[2018-08-04] MEDS: Guaifenesin/DM 10ml syrup ORAL PRN ×2 (02:24→20:35)
[2018-08-04] MEDS: Ascorbic Acid 500mg tab ORAL PRN (02:24)
[2018-08-04 04:00] VITALS: BP 135/82
[2018-08-04] MEDS: ABREVA TOPIC SCH ×5 (06:18→19:00)
[2018-08-04 08:00] VITALS: BP 122/63
[2018-08-04] MEDS: VYVANSE 30 MG ORAL SCH (09:00)
--- NOTE | 2018-08-04 09:30 | General Progress Note ---
Progress Note Progress Note AVSS Tolerating BCIR low residue diet. Abdomen soft. Miroslava removed and steristrips applied Urine 1850 Kock pouch ileo 1370 Kock pouch catheter removed - reinserts readily Imp. Doing well Plan: RN supervised Kock Pouch self-intubations q3h am to hs and prn; overnight prn continue Venofer to 1000mg total f/u labs Bang Gracia MD Aug 04, 2018 09:30
[2018-08-04] MEDS: Iron Sucrose 200 MG in NS 110 ML IV SCH (10:11)
[2018-08-04] MEDS: Lisinopril 20mg tab ORAL SCH (10:12)
[2018-08-04 12:00] VITALS: BP 143/79
[2018-08-04] MEDS ORDERED: NS 275ml ONE (15:26)
[2018-08-04] MEDS ORDERED: Tubing IV Secondary IV ONE (15:26)
[2018-08-04 16:00] VITALS: BP 149/72
[2018-08-04 20:00] VITALS: BP 147/72
[2018-08-04] MEDS: Dyna-Hex 2% Top Sol 2oz TOPIC SCH (20:00)
[2018-08-05] VITALS: BP 156/73
[2018-08-05] MEDS: LORazepam 1mg tab SL PRN ×2 (01:11→23:02)
[2018-08-05 04:00] VITALS: BP 134/71
[2018-08-05] MEDS: Guaifenesin/DM 10ml syrup ORAL PRN ×2 (05:26→20:03)
[2018-08-05 06:31] LABS: BASOPHILS % (AUTO) 1.1 % (0.0-2.0); EOSINOPHILS % (AUTO) 2.5 % (0.0-3.0); HEMATOCRIT 34.1 % (37.0-47.0); HEMOGLOBIN 11.4 G/DL (12.0-16.0); LYMPHOCYTES % (AUTO) 52.3 % (20.0-45.0); MEAN CORPUSCULAR VOLUME 91 FL (80-99); MONOCYTES % (AUTO) 5.2 % (1.0-10.0); NEUTROPHILS % (AUTO) 38.9 % (45.0-75.0); PLATELET COUNT 339 K/UL (150-450); RED BLOOD COUNT 3.76 M/UL (4.20-5.40); RED CELL DISTRIBUTION WIDTH 11.8 % (11.6-14.8); WHITE BLOOD COUNT 9.3 K/UL (4.8-10.8)
[2018-08-05 06:52] LABS: ALANINE AMINOTRANSFERASE 31 U/L (12-78); ALBUMIN/GLOBULIN RATIO 0.8 (1.0-2.7); ALKALINE PHOSPHATASE 110 U/L (46-116); ANION GAP 9 mmol/L (5-15); ASPARTATE AMINO TRANSFERASE 18 U/L (15-37); BILIRUBIN,TOTAL 0.3 MG/DL (0.2-1.0); BLOOD UREA NITROGEN 11 mg/dL (7-18); CALCIUM 8.8 MG/DL (8.5-10.1); CARBON DIOXIDE 24 MMOL/L (21-32); CHLORIDE 107 MMOL/L (98-107); CREATININE 1.1 MG/DL (0.55-1.30); POTASSIUM 3.5 MMOL/L (3.5-5.1); SODIUM 140 MMOL/L (136-145)
[2018-08-05] MEDS: ABREVA TOPIC SCH ×5 (07:00→19:00)
[2018-08-05 08:00] VITALS: BP 156/83
[2018-08-05] MEDS: VYVANSE 30 MG ORAL SCH (09:00)
[2018-08-05] MEDS: Lisinopril 20mg tab ORAL SCH (09:48)
[2018-08-05] MEDS: Iron Sucrose 200 MG in NS 110 ML IV SCH (09:49)
--- NOTE | 2018-08-05 10:37 | General Progress Note ---
Progress Note Progress Note Doing well with Kock pouch self-intubations and no GI issues Abdomen soft, nicely healed Urine 1700 Kock pouch ileo 1130 WBC 9300 Hgb 11.4 BUN 11 Cr 1.1 Albumin up 3.0 Imp. Doing well Plan: continue RN supervised Kock pouch self-intubations anticipate discharge in AM instructions/limitations/supplies provided/discussed f/u 08/09 and prn Bang Gracia MD Aug 05, 2018 10:37
[2018-08-05 12:00] VITALS: BP 137/83
[2018-08-05 15:56] VITALS: BP 140/74
[2018-08-05 20:00] VITALS: BP 157/82
[2018-08-06] VITALS: BP 133/71
[2018-08-06] MEDS: Guaifenesin/DM 10ml syrup ORAL PRN (00:16)
[2018-08-06 04:00] VITALS: BP 156/76
[2018-08-06] MEDS: ABREVA TOPIC SCH (06:17)
--- NOTE | 2018-08-06 07:58 | General Progress Note ---
Progress Note Progress Note AVSS Feels well. Large volume of Kock pouch ileo output with more frequent intubations than q3h - she states she drank milk to loosen her thick effluent and does not feel like pouchitis Abdomen soft Urine 1550 Kock pouch ileo 1700 Imp. Doing well Plan: Discharge (see prior note for details) Bang Gracia MD Aug 06, 2018 07:58
--- NOTE | 2018-08-10 12:11 | Discharge Summary ---
Discharge Summary Hospital Course Date of Admission Jul 25, 2018 at 10:01 Date of Discharge Aug 06, 2018 at 08:35 Admitting Diagnosis malfunctioning Kock pouch Reason for Hospitalization: elective surgery HPI Ivania Velasquez is a 67 year old female who was admitted on Jul 25, 2018 at 10:01 for Malfunctioning Kock Pouch. Patient was admitted for elective surgery Procedures s/p 07/25/[address] Gracia Kock pouch endoscopy s/p 07/26/[address] Gracia Laparotomy with revision of Kock pouch. Hospital Course -patient admitted and undergone insertion of PICC line -patient started on intravenous hydration and bowel preparation -patient initially undergone on 07/25 Kock pouch endoscopy with finding of prolapse of the nipple valve with a healthy pouch -patient required surgical revision of her pouch -patient subsequently undergone on 07/26 laparotomy with revision of Kock pouch -patient tolerated surgery well -07/26 patient was very sleepy with ow systolic blood pressure, but no tachycardia -given IV fluid bolus , afterwards patient became more awake and alert with stable vital sinus -abdomen soft, dressing dry ,pouch with small amount of serous serosanguineous fluid -07/27 pain management with morphine INVESTIGATION SPECIALIST, no basal infusion -intake and output closely monitored; abdomen with mild distention; incision clean -patient kept n.p.o. except medications and ice chips -thick output via Kock pouch ileo catheter was cleared with additional flush/ aspiration -patient ambulated with assistance twice a day. -incentive spirometry was encouraged while in the bed -07/28 pain controlled -patient comfortable with morphine INVESTIGATION SPECIALIST without basal infusion -abdomen remained with mild distention ; incision clean , -good output -low-sodium noted ; IV fluids changed - n.p.o. status and NG tube continue -ambulation encouraged -07/29 continue n.p.o. except meds and ice chips -continue with ambulation - hold lisinopril -07/30 not ambulated, low-grade fever, no nausea, vomiting , chills -incision clean; good output -KUB and chest x-ray ordered -incentive spirometry encouraged -n.p.o. 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 -patient with evidence of severe iron deficiency -clear liquid diet was continued for additional day - IV fluids rate decreased -patient started on IV Venofer -continuous drainage of drainage pouch was maintained -08/02 tolerated clear liquid diet ; no fevers ; improving -started on BCIR diet -IV fluids and INVESTIGATION SPECIALIST discontinued -Lisinopril was resumed -08/03 Venofer continued - tolerated diet -started on RN supervised Kock pouch self intubation -08/04 jt removed; Steri-Strips applied to abdomen -pouch removes and reinserts readily -patient was continued with RN supervised self intubation " every 3 hours during the day and at night as needed -08/05 patient was continued on RN supervised Kock pouch self intubation -abdomen soft and nicely healing -discharge instructions /limitation/ supplies /provided and discussed -patient to follow-up in the office on 08/09 and prn -08/06 noted large volume of pouch ileal output -patient required more frequent intubations than every 3 hours -she stated that she drank milk to loosen thick effluent ; did not feel d like it was pouchitis -abdomen soft -patient was stable for discharge FINAL DIAGNOSES 1. 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 2. History of ulcerative colitis. 3. Status post multiple abdominal operations. 3.1. Proctocolectomy with Maira ileostomy in 1974. 3.2. Creation of Kock pouch continent ileostomy in 1977. 4. 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 Laparotomy with revision of Kock Pouch 7. Ileus 8. Atelectasis 9. Severe iron deficiency Discharge Medications Continued Medications: Albuterol Sulfate (Proventil Hfa) 6.7 Gm Hfa.aer.ad 6.7 GM IH (This prescription has been renewed) Baclofen* (Baclofen*) 10 Mg Tablet 10 MG ORAL DAILY, TAB (This prescription has been renewed) Levothyroxine Sodium* (Levothyroxine Sodium*) 75 Mcg Tablet 100 MCG ORAL DAILY, TAB (This prescription has been renewed) Take in the morning on an empty stomach, at least 30 minutes before food. Lisinopril (Lisinopril*) 20 Mg Tablet 20 MG ORAL DAILY, TAB (This prescription has been renewed) [veyvanse] () (This prescription has been renewed) Discharge Condition Upon Discharge: stable Discharge Disposition Patient was discharged to Home (01) Discharge Instructions Discharge Instructions Special Instructions I have been assigned to complete a D/C Summary on this account. I was not involved in the patient management Miriam Zimmerman NP Aug 10, 2018 12:11
== END 2018-08-06 08:35 | disposition home or self-care (01) | DRG 330 ==
LOC: 3E 07-25 10:01
PROC: B518ZZA Fluoroscopy of Superior Vena Cava, Guidance (ICD-10-PCS; principal; 2018-07-25 13:07)
PROC: 0DJD8ZZ Inspection of Lower Intestinal Tract, Via Natural or Artificial Opening Endoscopic (ICD-10-PCS; principal; 2018-07-25 13:07)
PROC: 02HV33Z Insertion of Infusion Device into Superior Vena Cava, Percutaneous Approach (ICD-10-PCS; principal; 2018-07-25 13:07)
PROC: 0DQB0ZZ Repair Ileum, Open Approach (ICD-10-PCS; 2018-07-26)
DX: K94.13 Enterostomy malfunction (principal); K56.7 Ileus, unspecified; J98.11 Atelectasis; K51.90 Ulcerative colitis, unspecified, without complications; I10 Essential (primary) hypertension; E03.9 Hypothyroidism, unspecified; F98.8 Other specified behavioral and emotional disorders with onset usually occurring in childhood and adolescence; E61.1 Iron deficiency
CPT/HCPCS: 36415; 36569; 71045; 71046; 74018; 76937; 80048; 80053; 81001; 82607; 82746; 83540; 85025; 85610; 85730; 86850; 86900; 86901; 87086; 93005; 94003; 94150; J2250; J2405